=== PATIENT | male | born 1965 | race African-American/Black ===

== ENCOUNTER 2023-05-23 20:14 | Emergency (ER) | payer OTHER, SELFPAY ==
[2023-05-23 20:17] VITALS: BP 122/90; PULSE 104; RESP 15; TEMP 36.6; O2SAT 97
[2023-05-23 20:57] LABS: Basophils Absolute Auto 0.1 K/mm3 (0.0-0.1); Basophils Percent Auto 0.7 % (0.2-1.2); Eosinophils Absolute Auto 0.6 K/mm3 (0-0.3); Eosinophils Percent Auto 7.2 % (0-4.4); Hematocrit 35.6 % (42.0-52.0); Hemoglobin 11.5 g/dL (14.0-18.0); Immature Granulocyte Absolute 0.02 K/mm3 (0.00-0.031); Immature Granulocyte Percent A 0.2 % (0-0.5); Lymphocytes Absolute Auto 3.52 K/mm3 (0.9-3.2); Lymphocytes Percent Auto 42.3 % (18.3-44.2); Mean Corpuscular HGB Conc 32.3 g/dl (32-36); Mean Corpuscular Hemoglobin 26.4 pg (26-34); Mean Corpuscular Volume 81.7 fl (80-100); Mean Platelet Volume 8.6 fl (7.4-10.4); Monocytes Absolute Auto 0.7 K/mm3 (0.1-0.6); Monocytes Percent Auto 8.8 % (2.6-8.5); Neutrophils Absolute Auto 3.4 K/mm3 (1.3-6.7); Neutrophils Percent Auto 40.8 % (45.5-73.1); Platelet Count Result 265 k/mm3 (150-375); Red Blood Count 4.36 M/mm3 (4.6-6.20); Red Cell Distribution Width 14.9 % (11.5-14.5); White Blood Count 8.3 K/mm3 (4.5-10.0)
--- NOTE | 2023-05-23 21:00 | ED.GENADULT ---
HPI - General Adult General Chief complaint: Psychiatric Symptoms Stated complaint: depressed Time Seen by Provider: 05/23/23 20:26 History of Present Illness HPI narrative: Is a 57-year-old female who presents emergency department with chief complaint of depression. The patient reports he has a history of depression and reports and been having thoughts of harming himself. Patient states that he wants to go to sleep and never wake up. She has thought about using a firearm patient reports he was recently admitted to [place] but feels as though they did not do much for him Related Data Allergies Allergy/AdvReac Type Severity Reaction Status Date / Time codeine Allergy Itching Verified 05/23/23 22:56 cyclobenzaprine Allergy Itching Verified 05/23/23 22:56 [From Flexeril] tramadol Allergy Itching Verified 05/23/23 22:56 Review of Systems Review of Systems: A 10 system review of systems was completed on the patient and is negative except for what is stated in the HPI. Nursing and ancillary documentation was reviewed. [facility] Social History Social History Substance use type: crack/cocaine Exam Narrative: GENERAL: Well-appearing, well-nourished, and in no acute distress. HEAD: Normocephalic, atraumatic. EYES: PERRLA and EOMI. ENT: Nares clear, no rhinorrhea or epistaxis. Mucous membranes moist. NECK: Supple. CHEST: Clear to auscultation. No respiratory distress. HEART: Regular rate and rhythm. No murmur heard. Normal peripheral pulses. ABDOMEN: Soft, nontender, nondistended, normal active bowel sounds. EXTREMITIES: Normal range of motion. No edema. SKIN: Warm, dry, no rash. NEURO: No focal deficits. Alert and oriented x3. PSYCH: Depressed mood and affect expresses suicidal ideation Course Vital Signs Vital signs: Vital Signs Temperature 36.6 C 05/23/23 20:17 Pulse Rate 104 H 05/23/23 20:17 Respiratory Rate 15 05/23/23 20:17 Blood Pressure 122/90 05/23/23 20:17 Pulse Oximetry 97 05/23/23 20:17 Oxygen Delivery Room Air 05/23/23 20:17 Temperature 36.6 C 05/23/23 20:17 Pulse Rate 104 H 05/23/23 20:17 Respiratory Rate 15 05/23/23 20:17 Blood Pressure 122/90 05/23/23 20:17 Pulse Oximetry 97 05/23/23 20:17 Oxygen Delivery Room Air 05/23/23 20:17 Transfer Transfered to: [facility] Transportation: BLS Transfer rationale: Inpatient psychiatric care Medical Decision Making MDM Narrative Medical decision making narrative: Differential diagnosis includes depression, suicidality, substance-induced mood disorder Laboratory studies were obtained on the patient which showed a normal CBC with a white count of 8.3 and hemoglobin 11.5 electrolytes are within normal limits glucose was slightly elevated at 295 with the patient has no anion gap and no evidence of acidosis normal renal function urinalysis showed no evidence for UTI salicylates were negative acetaminophen was negative EtOH was 21 influenza and COVID were negative urine drug screen was positive for cocaine and cannabinoids Patient is medically cleared for psychiatric evaluation referral and transport and admission Vital Signs Vital Signs: Vital Signs Temperature 36.6 C 05/23/23 20:17 Pulse Rate 104 H 05/23/23 20:17 Respiratory Rate 15 05/23/23 20:17 Blood Pressure 122/90 05/23/23 20:17 Pulse Oximetry 97 05/23/23 20:17 Oxygen Delivery Room Air 05/23/23 20:17 Temperature 36.6 C 05/23/23 20:17 Pulse Rate 104 H 05/23/23 20:17 Respiratory Rate 15 05/23/23 20:17 Blood Pressure 122/90 05/23/23 20:17 Pulse Oximetry 97 05/23/23 20:17 Oxygen Delivery Room Air 05/23/23 20:17 Lab Data 05/23/23 20:47 05/23/23 20:47 Labs: Lab Results 05/23/23 05/23/23 05/23/23 Range/Units 20:47 20:47 20:47 WBC 8.3 (4.5-10.0) K/mm3 RBC 4.36 L (4.6-6.20) M/mm3 H
[2023-05-23 21:02] LABS: Appearance Urine Clear (Clear); Bacteria Urine None Seen /hpf; Bilirubin Urine Negative (Negative); Blood Urine Negative (Negative); Color Urine Yellow (Yellow); Glucose Urine UA 2+ mg/dL (Negative); Ketones Urine Trace mg/dL (Negative); Leukocyte Esterase Ur Negative LEU/UL (Negative); Nitrate Urine Negative (Negative); Non Pathogenic Casts 0-2; Protein Urine 2+ mg/dL (Negative); RBC Urine 0-2 /hpf (0-2); Specific Grav Ur 1.024 (1.001-1.035); Squamous Epithelial Cell Urine None seen /hpf (Few); WBC Urine 0-5 /hpf; pH Urine 5.5 (5.0-9.0)
[2023-05-23 21:08] LABS: Alanine Aminotransferase 27 U/L (6-50); Albumin Level 4.7 g/dL (3.5-5.1); Alkaline Phosphatase 74 U/L (38-126); Anion Gap 14 mmol/L (8-16); Aspartate Amino Transferase 37 U/L (17-59); Bilirubin,Total 0.6 mg/dL (0.2-1.3); Blood Urea Nitrogen 16 mg/dL (9-20); Carbon Dioxide 24 mmol/L (22-30); Chloride 102 mmol/L (98-107); Estimated CRCL calculation 73 ml/min; Estimated Glomerular Filt Rate > 60; Glucose 295 mg/dL (65-110); Potassium 3.8 mmol/L (3.4-5.0); Sodium 140 mmol/L (137-145)
[2023-05-23 21:09] LABS: Acetaminophen < 10 ug/mL (10-30); Ethanol 21 mg/dL (<10); Salicylate < 1.0 mg/dL (2-20)
[2023-05-23 21:15] LABS: Add Urine Microscopic? YES
[2023-05-23 21:26] LABS: Amphetamine Screen Urine Negative (Negative); Barbiturate Screen Urine Negative (Negative); Benzodiazepines Screen Urine Negative (Negative); Cannabinoid Screen Urine Positive (Negative); Cocaine Screen Urine Positive (Negative); Methadone Screen Urine Negative (Negative); Opiate Screen Urine Negative (Negative); Phencyclidine Screen Urine Negative (Negative)
[2023-05-23 21:34] LABS: Influenza A QL RT-PCR Negative (Negative); Influenza B QL RT-PCR Negative (Negative); SARS-CoV-2 RNA PCR Negative (Negative)
--- NOTE | 2023-05-23 22:47 | ECG_ITS ---
Rate SC QRSd QT QTc P QRS T Severity 84 134 101 383 454 55 50 56 Normal ECG SINUS RHYTHM NORMAL ECG NO PREVIOUS ECG AVAILABLE FOR COMPARISON Electronically Signed On 05-24-2023 6:53:53 CDT by Dean CARDENAS
[2023-05-24 00:01] LABS: Glucose Point of Care 345 mg/dl (65-105)
[2023-05-24] MEDS: INSULIN HUMAN REGULAR (*BKC) 100 UNITS/ML 6 UNITS SUB-Q (00:14)
[2023-05-24 00:54] LABS: Glucose Point of Care 287 mg/dl (65-105)
[2023-05-24] MEDS: SODIUM CHLORIDE 0.9% IV 1,000 ML 999 ML IV CONT ×2 (01:33)
[2023-05-24 02:09] LABS: Glucose Point of Care 277 mg/dl (65-105)
[2023-05-24] MEDS: INSULIN HUMAN REGULAR (*BKC) 100 UNITS/ML IV PUSH (02:11)
[2023-05-24 02:54] LABS: Glucose Point of Care 260 mg/dl (65-105)
[2023-05-24 03:27] LABS: Glucose Point of Care 203 mg/dl (65-105)
--- NOTE | 2023-05-24 03:27 | PC.NURSE ---
Erendira contacted for an update on blood sugar. corporate risk analyst states she will call back with an answer after discussing patient with their physician.
[2023-05-24 04:10] LABS: Glucose Point of Care 190 mg/dl (65-105)
--- NOTE | 2023-05-24 04:11 | PC.NURSE ---
patient accepted at [facility].
--- NOTE | 2023-05-24 05:19 | PC.NURSE ---
report called to Romi RN-room [id number].
[2023-05-24 06:26] VITALS: BP 124/88; PULSE 92; RESP 15; O2SAT 100
== END 2023-05-24 06:29 ==
PROVIDERS: Emergency Provider Emergency Medicine
DX: F32.A Depression, unspecified (principal); R45.851 Suicidal ideations; Z20.822 Contact with and (suspected) exposure to COVID-19
CPT/HCPCS: 36415; 80053; 80307; 81001; 82948; 84443; 85025; 87636; 93005; 96361; 96374; 99285; J1815; J7030